=== PATIENT | female | born 1975 | race Caucasian/White ===

== ENCOUNTER 2023-07-10 13:28 | Outpatient (CLI) | payer OTHER, SELFPAY | END 2023-07-10 13:29 | disposition home or self-care (01) | PROVIDERS: Visit Provider Obstetrics & Gynecology | DX: Z13.220 Encounter for screening for lipoid disorders (principal); Z13.1 Encounter for screening for diabetes mellitus; R31.9 Hematuria, unspecified | CPT/HCPCS: 80061; 82947; 87086 ==

== ENCOUNTER 2023-07-31 08:28 | Outpatient (CLI) | payer OTHER, SELFPAY ==
--- NOTE | 2023-07-31 08:45 | CRLHL7_ITS ---
For Patients: As a result of the Cures Act, medical imaging exams and procedure reports are released immediately into your electronic medical record. You may view this report before your referring provider. If you have questions, please contact your health care provider. DIGITAL DIAGNOSTIC BILATERAL MAMMOGRAM USING TOMOSYNTHESIS AND COMPUTER-AIDED DETECTION LEFT BREAST ULTRASOUND CLINICAL HISTORY: LEFT breast lump. COMPARISON: None. TECHNIQUE: Digital BILATERAL mammogram in four projections. Tomosynthesis and CAD utilized. Real-time ultrasound imaging of LEFT breast with imaging documentation. BREAST COMPOSITION: The breasts are heterogeneously dense, which may obscure small masses. FINDINGS: 3D CC/MLO BILATERAL mammogram images submitted. No suspicious masses or architectural distortion. No adenopathy or suspicious calcifications. Targeted LEFT breast ultrasound performed 9 o`clock 6 cm from the nipple. Normal fibroglandular tissue. No fibrocystic change or mass. IMPRESSION: No evidence of malignancy. RECOMMENDATIONS: Annual BILATERAL screening mammography. Results and recommendations discussed with the patient. BI-RADS Category 2: Benign A lay language report of this examination will be provided to the patient. Dictated by Mandeep Ram MD @ 07/31/2023 10:52:18 AM j/Dictated by: Mandeep Ram MD @ 07/31/2023 10:52:00 AM (Electronically Signed)
--- NOTE | 2023-07-31 09:15 | CRLHL7_ITS ---
For Patients: As a result of the Cures Act, medical imaging exams and procedure reports are released immediately into your electronic medical record. You may view this report before your referring provider. If you have questions, please contact your health care provider. PLEASE SEE DIGITAL DIAGNOSTIC BILATERAL MAMMOGRAM PERFORMED SAME DAY CRL:jame kilgore/Dictated by: Mandeep Ram MD @ 07/31/2023 10:52:00 AM (Electronically Signed)
== END 2023-07-31 08:29 | disposition home or self-care (01) ==
PROVIDERS: Visit Provider Obstetrics & Gynecology
DX: N63.20 Unspecified lump in the left breast, unspecified quadrant (principal); R92.2 Inconclusive mammogram
CPT/HCPCS: 76642; 77066; G0279

== ENCOUNTER 2023-08-03 10:44 | Outpatient (CLI) | payer OTHER, SELFPAY ==
--- NOTE | 2023-08-03 12:05 | W.ANESCHARGE ---
Anesthesia Charges Start Date/Time Anesthesia Start Date: 08/03/23 Anesthesia Start Time: 11:39 Stop Date/Time Anesthesia Stop Date: 08/03/23 Anesthesia Stop Time: 12:04
--- NOTE | 2023-08-03 12:06 | W.ANESCHARGE ---
Anesthesia Charges Start Date/Time Anesthesia Start Date: 08/03/23 Anesthesia Start Time: 11:39 Stop Date/Time Anesthesia Stop Date: 08/03/23 Anesthesia Stop Time: 12:04
== END 2023-08-03 10:45 | disposition home or self-care (01) ==
LOC: OP CLINIC 10:44
PROVIDERS: PCP Family Medicine; Visit Provider Internal Medicine
DX: Z12.11 Encounter for screening for malignant neoplasm of colon (principal)
CPT/HCPCS: 00811; 00812; 45378; J2704

== ENCOUNTER 2024-07-11 13:01 | Outpatient (CLI) | payer OTHER, SELFPAY ==
[2024-07-14 11:25] LABS: HPV Source Cervical; HPV, High Risk by TMA Not Detected
== END 2024-07-11 13:02 | disposition home or self-care (01) ==
PROVIDERS: PCP Family Medicine; Visit Provider Obstetrics & Gynecology
DX: Z01.419 Encounter for gynecological examination (general) (routine) without abnormal findings (principal); Z12.4 Encounter for screening for malignant neoplasm of cervix
CPT/HCPCS: 87624; 87625; 88141; 88142

== ENCOUNTER 2025-07-31 13:27 | Outpatient (CLI) | payer OTHER, SELFPAY | END 2025-07-31 13:28 | disposition home or self-care (01) | LOC: NFLDREF 13:28 | PROVIDERS: PCP Family Medicine; Visit Provider Obstetrics & Gynecology | DX: R23.2 Flushing (principal) | CPT/HCPCS: 84443 ==